=== PATIENT | male | born 2000 | race Caucasian/White ===

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

== ENCOUNTER 2022-09-29 16:11 | Emergency (ER) | payer OTHER ==
[2022-09-29] MEDS ORDERED: Lidocaine 1% PF 2 ML SDV INJECT ONE (17:01)
[2022-09-29] MEDS ORDERED: Octyl 2-Cyanoacrylate 1 g/1 mL 1 APPLIC PEN TOP ONE (17:13)
== END 2022-09-29 17:28 | disposition home or self-care (01) ==
LOC: MW.ED 16:11
DX: S61.210A Laceration without foreign body of right index finger without damage to nail, initial encounter (principal)
CPT/HCPCS: 12001; 99282

== ENCOUNTER 2024-11-22 00:53 | Emergency (ER) | payer OTHER ==
[2024-11-22] MEDS: LORazepam 0.5 MG Tab PO ONE (01:17)
[2024-11-22 01:46] LABS: AMPHETAMINES SCREEN, URINE PRESUMPTIVE POSITIVE (CUTOFF=500); BARBITURATE SCREEN,URINE NEGATIVE (CUTOFF=200); BENZODIAZEPINES SCREEN,URINE NEGATIVE (CUTOFF=150); BUPRENORPHINE SCREEN,URINE NEGATIVE (CUTOFF=10); METHADONE SCREEN, URINE NEGATIVE (CUTOFF=200); METHAMPHETAMINES SCREEN, URINE NEGATIVE (CUTOFF=500); OXYCODONE SCREEN,URINE NEGATIVE (CUT0FF=100); PCP SCREEN,URINE NEGATIVE (CUTOFF=25); THC SCREEN,URINE 20 NG/ML PRESUMPTIVE POSITIVE (CUTOFF=50)
== END 2024-11-22 02:43 | disposition home or self-care (01) ==
LOC: MW.ED 00:53
DX: F41.0 Panic disorder [episodic paroxysmal anxiety] (principal); R44.0 Auditory hallucinations; F12.90 Cannabis use, unspecified, uncomplicated; Z86.59 Personal history of other mental and behavioral disorders; Z79.899 Other long term (current) drug therapy
CPT/HCPCS: 80305; 99284; A9270

== ENCOUNTER 2025-05-22 10:16 | Emergency (ER) | payer OTHER | END 2025-05-22 12:08 | disposition home or self-care (01) | LOC: MW.ED 10:16 | DX: F41.9 Anxiety disorder, unspecified (principal); Z79.899 Other long term (current) drug therapy | CPT/HCPCS: 71046; 71046-26; 93005; 99282; 99285 ==